=== PATIENT | female | born 1975 | race Caucasian/White ===

== ENCOUNTER 2023-01-01 18:05 | Emergency (ER) | payer OTHER, SELFPAY ==
[2023-01-01 18:07] VITALS: BP 200/84; PULSE 67; RESP 18; TEMP 36.6; O2SAT 98; BMI 38.9
--- NOTE | 2023-01-01 18:35 | CM.SWNOTE ---
WIRE WINDING MACHINE TENDER Note WIRE WINDING MACHINE TENDER receives consult from java technical manager due to patient's statements of passive SI and patient seeking MH provider. Patient is 47 y/o female who presents to due to concern for blurry vision and migraine. Patient recently in the last month had kidney stones removed at [facility]. Patient endorses she resides in [place] but has been staying with mother in [place] since surgery. Patient's PCP is Dr. Triplett with [facility] in [place], Patient has [employer] insurance. WIRE WINDING MACHINE TENDER enters triage room to meet with patient. Patient endorses her therapist retired and she is looking for new therapist. Patient endorses passive SI and depression because of medical condition. Patient has rx from PCP for Escitaopram Oxalate and Trazodone. Patient endorses passive SI and hopelessness but denies plan or intent. Patient endorses she has been staying with mother in [place] and may continue to stay there if she does not feel well enough to return to work/home in [place]. Patient endorses interest in FMLA. WIRE WINDING MACHINE TENDER provides patient with FMLA paperwork and list of MH providers that accept her insurance. Patient awaiting ED provider evaluation and treatment. NADIR Arteaga
[2023-01-01 18:47] LABS: Add Manual Diff / Slide Review NO; Basophils Absolute Auto 200 /uL (0-100); Basophils Percent Auto 1.5 % (0-2); Eosinophils Absolute Auto 600 /uL (0-450); Eosinophils Percent Auto 4.4 % (2-4); Hematocrit 34.3 % (36-46); Hemoglobin 9.7 g/dL (12.0-16.0); Lymphocytes Absolute Auto 3200 /uL (1100-4500); Lymphocytes Percent Auto 25.1 % (25-40); Mean Corpuscular HGB Conc 28.2 % (30-36); Mean Corpuscular Hemoglobin 17.7 PG (26-34); Mean Corpuscular Volume 62.8 fL (80-100); Monocytes Absolute Auto 700 /uL (0-900); Monocytes Percent Auto 5.6 % (3-14); Neutrophils Absolute Auto 8200 /uL (1500-7000); Neutrophils Percent Auto 63.4 % (50-75); Platelet Count 443 X10^3/uL (150-400); Red Blood Cell Count 5.46 X10^6/uL (4.0-5.2); Red Cell Distribution Width 39.8 % (11.6-14.8)
--- NOTE | 2023-01-01 18:56 | ED.HA ---
HPI - Headache General Chief Complaint: Headache Stated Complaint: blurred vision/headache post surgery Time Seen by Provider: 01/01/23 21:51 History of Present Illness HPI Narrative: 47-year-old female nonsmoker with history of diabetes and kidney stones presents with a chief complaint of a headache that has been present for a few weeks if not longer. She states she does have a history of headaches but it seems to be related to kidney stones. She had relatively recently been hospitalized for a 5 mm kidney stone and was stented. She states she pulled the stent yesterday and soon thereafter feels like her headache likely intensified and seems to get worse with bright lights, loud noise and exertion. She denies fever or chills nor any traumatic injury. She denies any neck pain or the use of blood thinners. She states at its most intense her pain was a 7/10 and currently is a 3/10. Additionally, soon after removing her ureteral stent yesterday she started noticing some blurring of her vision at distance only. She denies any trouble up closed, she denies any floaters, flashers or eye pain. She has no chest pain, shortness of breath or cough. Related Data Allergies Allergy/AdvReac Type Severity Reaction Status Date / Time azithromycin Allergy Unknown Verified 01/01/23 18:30 miocamycin Allergy Unknown Verified 01/01/23 18:30 Review of Systems Review of Systems Narrative: GENERAL: See HPI HEENT: See HPI RESPIRATORY: Denies dyspnea, cough, wheezing, hemoptysis, sputum. CARDIOVASCULAR: Denies chest pain, palpitations, orthopnea, edema, GASTROINTESTINAL: Denies nausea, vomiting, abdominal pain, diarrhea, constipation, melena. : Denies dysuria, frequency, incontinence, hematuria, urinary retention. MUSCULOSKELETAL: denies weakness, joint pain, or bony pain SKIN: Denies rash, skin lesions, or other NEUROLOGIC: See HPI PSYCHIATRIC: No concerning psychosocial issues. 12 point review of systems is negative except for those stated above Patient History Social History Smoking Status: Never smoker Smoking Status: Never smoker alcohol intake frequency: holidays/special occasions only Substance Use Type: does not use Exam Narrative Exam Narrative: GENERAL: [47] year old patient appears stated age. Well-developed patient, in mild distress. HEAD: Atraumatic. Normocephalic. EYES: Pupils equal round and reactive. Extraocular motions intact. No scleral icterus. No injection or drainage. ENT: Nose without bleeding, purulent drainage. Throat without erythema, tonsillar hypertrophy or exudate. Airway patent. NECK: Trachea midline. Non tender CARDIOVASCULAR: Regular rate and rhythm without murmurs, gallops, or rubs. RESPIRATORY: Clear to auscultation. Breath sounds equal bilaterally. No wheezes, rales, or rhonchi. GASTROINTESTINAL: Abdomen soft, non-tender, nondistended. EXTREMITIES: No edema or joint tenderness. BACK: Nontender without deformity or crepitance. No flank tenderness. NEURO: AOx3. SKIN: No rash or erythema of visible areas NIH Stroke Scale 1a. LOC: Patient is alert and keenly responsive (0) 1b. LOC Questions: Patient answers both LOC questions accurately (0) 1c. LOC Commands: Patient performs both tasks correctly (0) 2. Best Gaze: Normal (0) 3. Visual: No visual loss (0) 4. Facial palsy: Normal symmetrical movements (0) 5. Motor arm: No drift (0) 6. Motor leg: No drift (0) 7. Limb ataxia: Absent (0) 8. Sensory: Normal (0) 9. Best language: No aphasia; normal (0) 10. Dysarthria: Normal (0) 11. Extinction and inattention: No abnormality (0) NIHSS: 0 Initial Vital Signs Initial Vital Signs: Vital Signs Temperature 97.8 F 01/01/23 18:07 Pulse Rate 67 01/01/23 18:07 Respiratory Rate 18 01/01/23 18:07 Blood Pressure 200/84 H 01/01/23 18:07 Pulse Oximetry 98 01/01/23 18:07 Oxygen Delivery Method Room Air 01/01/23 18:07 Course Orders Ordered: ED Orders 01/01/23 18:22 Consult to PALLIATIVE CARE SPECIALIST - Lead Java J2Ee Developer Stat 01/01/23 18:33 Complete Blood Count AUTO DIFF Stat Comprehensive Metabolic Panel Stat 01/01/23 21:07 CT head/brain wo con Stat Discontinued Medications Sodium Chloride (Normal Saline 0.9%) 1,000 mls @ 1,000 mls/hr IV BOLUS ONE Stop: 01/01/23 19:23 Last Infusion: 01/01/23 23:42 Dose: 0 mls/hr Documented By: Admin: 04/07/23 21:11 Dose: 1,000 mls/hr Documented By: TYREL Sodium Chloride (Normal Saline 0.9%) 1,000 mls @ 1,000 mls/hr IV BOLUS ONE Stop: 01/02/23 00:04 Last Infusion: 01/02/23 00:12 Dose: 0 mls/hr Documented By: Admin: 01/01/23 23:23 Dose: 1,000 mls/hr Documented By: TYREL Ketorolac Tromethamine (Ketorolac 30 Mg/Ml Vial) 15 mg IV NOW ONE Stop: 01/01/23 23:06 Last Admin: 01/01/23 23:23 Dose: 15 mg Documented By: TYREL Metoclopramide HCl (Metoclopramide 10 Mg/2 Ml Inj) 10 mg IV NOW ONE Stop: 01/01/23 23:06 Last Admin: 01/01/23 23:23 Dose: 10 mg Documented By: TYREL Reevaluation(s) Reevaluation #1: Patient has significant improvement in symptoms with above-stated therapies. Her headache is still present but only a 1 or so. She does have some minimal blurring of her vision at distance only but this also is improved. Vital Signs Vital signs: Vital Signs - 8 hr 01/01/23 18:07 01/01/23 23:23 01/01/23 23:27 Temperature 97.8 F 97.8 F 97.8 F Pulse Rate 67 59 L Respiratory Rate 18 16 Blood Pressure 200/84 H 176/79 H Pulse Oximetry 98 96 Oxygen Delivery Method Room Air Room Air MDM - Headache Lab Data 01/01/23 18:33 01/01/23 18:33 Labs: Lab Results 01/01/23 01/01/23 Range/Units 18:33 18:33 WBC 13.0 H (4.5-11.0) X10^3/uL RBC 5.46 H (4.0-5.2) X10^6/uL Hgb 9.7 L (12.0-16.0) g/dL Hct 34.3 L (36-46) % MCV 62.8 L (80-100) fL MCH 17.7 L (26-34) PG MCHC 28.2 L (30-36) % RDW 39.8 H (11.6-14.8) % Plt Count 443 H (150-400) X10^3/uL Neut % (Auto) 63.4 (50-75) % Lymph % (Auto) 25.1 (25-40) % [place] % (Auto) 5.6 (3-14) % Eos % (Auto) 4.4 H (2-4) % Baso % (Auto) 1.5 (0-2) % Neut # (Auto) 8200 H (5166-0178) /uL Lymph # (Auto) 3200 (7674-6667) /uL Screven # (Auto) 700 (0-900) /uL Eos # (Auto) 600 H (0-450) /uL Baso # (Auto) 200 H (0-100) /uL RBC Morphology See below Hypochromasia 3+ H Poikilocytosis 2+ H Anisocytosis 3+ H Microcytosis 2+ H Ovalocytes 2+ H Schistocytes 1+ H Sodium 139 (137-145) mmol/L Potassium 4.1 (3.4-5.1) mmol/L Chloride 102 (98-107) mmol/L Carbon Dioxide 25 (22-32) mmol/L BUN 23 H (7-17) mg/dL Creatinine 0.77 (0.52-1.04) mg/dL Estimated GFR > 60 (>60) mL/min BUN/Creatinine Ratio 29.9 H (6-22) Glucose 232 H (70-100) mg/dL Calcium 9.7 (8.4-10.2) mg/dL Total Bilirubin 0.4 (0.2-1.3) mg/dL AST 26 (14-36) IU/L ALT 23 (<35) IU/L Alkaline Phosphatase 45 (38-126) U/L Total Protein 7.5 (6.3-8.2) g/dL Albumin 4.2 (3.5-5.0) g/dL Globulin 3.3 (1.7-4.1) g/dL Albumin/Globulin Ratio 1.3 (1.0-2.8) Point of Care Testing Test Results Negative Urine Dip Bedside Urine Glucose Negative Bedside Urine Bilirubin - Negative Bedside Urine Ketone - Negative Urine Specific [place] 1.015 Bedside Urine Occult Blood - Negative Bedside Urine pH 6.0 Bedside Urine Protein - Negative Bedside Urine Urobilinogen - Negative Bedside Urine Nitrite - Negative Bedside Urine Leukocytes - Negative Esterase MDM Narrative Medical decision making narrative: CC: 47-year-old female with headache and blurred vision at distance for some time Complicating co-morbidities: Recent surgery Data collected from: Patient Medical records reviewed: Prior notes reviewed in our EMR Differential considered, but not limited to: HTN emergency, stroke, intracranial hemorrhage, atypical migraine versus other Exam documented above, pertinent findings include: Cranial nerves 2-12 grossly intact, GCS 15, NIH stroke scale 0, heart rate regular, lungs clear and nonlabored, abdomen soft and nontender Lab Test results independently reviewed as above. Pertinent findings: Slight leukocytosis, no obvious left shift, patient anemic but reports chronic anemia, MCV low suggesting possible iron deficiency. Otherwise no significant abnormal findings Independently reviewed EKG as above Imaging studies independently reviewed: Head CT without acute process Scores Used: NIHSS Treatments: Fluids, Toradol, Reglan, patient had gone from a 7/10 down to a 1/10 with improved vision Re-evaluations: Significant improvement as noted above Discussion: Patient with headache and long distance blurred vision with otherwise reassuring history and physical exam, labs are largely at her baseline, imaging unremarkable. Multiple diagnoses as noted above Headache considerations include, but not limited to: Subarachnoid hemorrhage, but unlikely as patient denies sudden onset of pain, not worst of life, or neck pain Meningitis considered, but thought unlikely given lack of Brudzinski's, Kernig's sign, altered mental status or fever Giant cell arteritis considered, but thought unlikely given lack of unilateral findings, pain in zoroastrian, vision change HTN Emergency considered, but thought unlikely given normal vitals Other serious diagnoses considered unlikely given lack of red flag findings such as sudden onset, increasing frequency, immunocompromise, systemic signs (fever, chills, stiff neck, or rash), focal neurologic findings, trauma, blood thinners, etc. Disposition: see below, along with detailed discharge instructions that have been reviewed with patient as well as indications for ED re-evaluation and additional outpatient follow up Discharge Plan Departure Patient Disposition: Home Clinical Impression: Headache Instructions: DI for Headache Activity Restrictions/Additional Instructions: *You have been diagnosed with [ Headache. As we discussed your history, physical exam, labs and imaging are reassuring and there is no evidence of stroke, bleeding in the brain or other significant diagnosis that requires a specific and immediate intervention] *What to do: *Take medications as directed *Follow up with your primary care provider in 2-3 days, call for an appointment. Let them know you were seen in the Emergency Department and that we ask that you be seen in follow up * as we discussed please follow-up with your eye doctor, call them later today, let them know you were seen in the emergency department and we would like you seen in follow-up. You had mentioned that you have eye doctors in [place], however for completeness sake I have included the contact information for our local ophthalmology team. *Return to ER if you should have any new, worsening or concerning symptoms, such as [ fever > 101F, neck pain or stiffness, vomiting, confusion, seizure, focal weakness, vision change, speech deficit or other concerning symptoms ] Referrals: Donavan Graham MD [Physician] - Olga Bunch DO [Primary Care Provider] - Stand Alone Forms: Patient Portal/API
[2023-01-01 19:05] LABS: Alanine Aminotransferase 23 IU/L (<35); Albumin 4.2 g/dL (3.5-5.0); Albumin Globulin Ratio 1.3 (1.0-2.8); Alkaline Phosphatase 45 U/L (38-126); Aspartate Aminotransferase 26 IU/L (14-36); BUN Creatinine Ratio 29.9 (6-22); Bilirubin Total 0.4 mg/dL (0.2-1.3); Blood Urea Nitrogen 23 mg/dL (7-17); Calcium 9.7 mg/dL (8.4-10.2); Carbon Dioxide 25 mmol/L (22-32); Chloride 102 mmol/L (98-107); Estimated Glomerular Filt Rate > 60 mL/min (>60); Globulin 3.3 g/dL (1.7-4.1); Glucose 232 mg/dL (70-100); HEMOLYSIS < 15 (0-50); Potassium 4.1 mmol/L (3.4-5.1); Sodium 139 mmol/L (137-145); Total Protein 7.5 g/dL (6.3-8.2)
[2023-01-01 19:06] LABS: Hypochromasia 3+; Microcytosis 2+; Poikilocytosis 2+; Schistocytes 1+
[2023-01-01 19:07] LABS: Anisocytosis 3+; Ovalocytes 2+
--- NOTE | 2023-01-01 21:07 | DI.CT.S_ITS ---
PROCEDURE: CT HEAD/BRAIN WO CON INDICATIONS: DONNELLY, blurred vision TECHNIQUE: Noncontrast 4.5 mm thick angled axial sections acquired from the foramen magnum to the vertex, with coronal and sagittal reformats. For radiation dose reduction, the following was used: automated exposure control, adjustment of mA and/or kV according to patient size. COMPARISON: None. FINDINGS: Image quality: Excellent. CSF spaces: Basal cisterns are patent. No extra-axial fluid collections. Ventricles are normal in size and shape. Brain: No midline shift. No intracranial masses or hemorrhage. Rodriguez-white matter interface is normal. Skull and face: Calvarium and visualized facial bones are intact, without suspicious lesions. Sinuses: Visualized sinuses and mastoids are clear. IMPRESSION: Normal noncontrast head CT, without a cause of the patient's presenting history identified. Dictated by: Murali Agrawal M.D. on 01/01/2023 at 20:21 Approved by: Murali Agrawal M.D. on 01/01/2023 at 20:22
[2023-01-01] MEDS: SODIUM CHLORIDE 0.9% 1,000 ML 1000 ML IV ×2 (21:11→23:23)
[2023-01-01 23:23] VITALS: TEMP 36.6
[2023-01-01] MEDS: KETOROLAC 30 MG/ML VIAL 15 MG IV (23:23)
[2023-01-01] MEDS: METOCLOPRAMIDE 10 MG/2 ML INJ IV (23:23)
[2023-01-01 23:27] VITALS: BP 176/79; PULSE 59; RESP 16; TEMP 36.6; O2SAT 96
== END 2023-01-02 00:29 | disposition home or self-care (01) ==
PROVIDERS: Emergency Provider Emergency Medicine; Family Provider Family Medicine; PCP Family Medicine
DX: R51.9 Headache, unspecified (principal); H53.8 Other visual disturbances
CPT/HCPCS: 36415; 70450; 80053; 81003; 81025; 85025; 96361; 96374; 96375; 99284; J1885; J2765